=== PATIENT | female | born 1985 | race Two or more races ===

== ENCOUNTER 2023-03-17 18:58 | Emergency (ER) | payer MEDICAID, OTHER ==
[~2023-03-17] VITALS: Ht 154.9 cm; Wt 68.5 kg
[2023-03-17 19:13] VITALS: TEMP 98.4
[2023-03-17] MEDS ORDERED: diphenhydrAMINE HCL 50 MG/ML VIAL ONE (19:29)
[2023-03-17] MEDS ORDERED: methylPREDNISolone SOD SUCC 125 MG/2ML VIAL ONE (19:29)
[2023-03-17] MEDS ORDERED: methylPREDNISolone SOD SUCC 125 MG/2ML VIAL IV ONE (19:30)
[2023-03-17] MEDS ORDERED: diphenhydrAMINE HCL 50 MG/ML VIAL IV ONE (19:30)
[2023-03-17] MEDS ORDERED: FAMOTIDINE/PF INJ 20 MG/2 ML VIAL IV ONE ×2 (19:30)
[2023-03-17] MEDS ORDERED: PRED50TA PO (19:43)
[2023-03-17 20:10] VITALS: BP 118/78; O2SAT 100
[2023-03-18] MEDS ORDERED: PRED50TA PO (09:02)
== END 2023-03-17 20:11 | disposition home or self-care (01) ==
LOC: ER 19:02
DX: T78.1XXA Other adverse food reactions, not elsewhere classified, initial encounter (principal); K13.0 Diseases of lips; Z60.2 Problems related to living alone; X58.XXXA Exposure to other specified factors, initial encounter
CPT/HCPCS: 99284; 96374; 96375; J1200; J3490; J2930